=== PATIENT | female | born 1960 | race Caucasian/White ===

== ENCOUNTER 2016-11-19 22:49 | Emergency (ER) | payer OTHER ==
[~2016-11-19] VITALS: Ht 162.6 cm; Wt 59.0 kg
[~2016-11-19 22:49] MED LIST: Apresoline PO; CIPRO 500MG TA500 MG PO; FLAGYL 25O MG250 M1 PO; NICODERM C21 MG/24 H TOP; PERCOCET 325 MG1 TA2 PO; PRILOSEC 20MG C20 MG PO
[2016-11-19] MEDS ORDERED: ALPRAZOLAM0.5 M4 PO (23:16)
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
[2016-11-19 23:31] LABS: ABSOLUTE BASOPHIL COUNT 0.1 /CUMM (0.0-0.2); ABSOLUTE EOSINOPHIL COUNT 0.1 /CUMM (0.0-0.7); ABSOLUTE GRANULOCYTE CT 6.7 /CUMM (1.4-6.5); ABSOLUTE LYMPH COUNT 3.6 /CUMM (1.2-3.4); ABSOLUTE MONOCYTE COUNT 0.5 /CUMM (0.10-0.60); BASOPHIL % 0.5 % (0.0-2.0); EOSINOPHIL % 1.2 % (0-5); GRANULOCYTE % 61.2 % (42.2-75.2); HEMATOCRIT 39.1 % (37-47); MEAN CORPUSCULAR HGB 31.2 PG (27.0-31.0); MEAN CORPUSCULAR HGB CONC 33.1 G/DL (33.0-37.0); MEAN CORPUSCULAR VOLUME 94.2 FL (81.0-99.0); MEAN PLATELET VOLUME 7.5 FL (7.4-10.4); PLATELET COUNT 253 /CUMM (130-400); RED BLOOD CELL CT 4.15 /CUMM (4.20-5.40); WHITE BLOOD CELL COUNT 10.9 /CUMM (4.8-10.8)
[2016-11-19 23:40] LABS: PTT 28 SEC (25-37)
--- NOTE | 2016-11-20 13:30 | ED PSY CRISIS COLLATERAL NOTE ---
Collateral Note Collateral Note Family/Inform/Karen Contacts: I reached out to all Alessandra contacts, the phone numbers are not correct. Her daughter Kristopher, was home but reported she was in her room, and then the poilce arrived. Kristopher had little insight she is about 15 or 16, and states her Mother had not been acting any differently lately.
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
[2016-11-20 18:43] VITALS: BP 133/69
== END 2016-11-20 20:16 | disposition other institution (70) ==
LOC: ERH 22:49
PROVIDERS: Physician Assistant
DX: T39.1X2A Poisoning by 4-Aminophenol derivatives, intentional self-harm, initial encounter (principal); R11.0 Nausea; I10 Essential (primary) hypertension; Z72.0 Tobacco use
CPT/HCPCS: 80307; 81001; 93005; 93010; G0463; G0480